=== PATIENT | female | born 1940 | race Caucasian/White ===

== ENCOUNTER 2019-07-24 11:32 | Emergency (ER) | payer OTHER ==
[~2019-07-24] VITALS: Ht 160 cm; Wt 79.4 kg
[2019-07-24] MEDS ORDERED: LOPRESSOR50 PO (11:43)
[2019-07-24] MEDS ORDERED: ZOCOR 20 MG TAB20 M1 PO (11:43)
[2019-07-24] MEDS ORDERED: COZAAR 25 MG TA25 M1 PO (11:43)
[2019-07-24] MEDS ORDERED: PREDNISONE 20 M20 MG PO (12:07)
[2019-07-24 12:19] VITALS: BP 175/84
== END 2019-07-24 12:20 | disposition home or self-care (01) ==
LOC: M.ERS 11:32
DX: T63.461A Toxic effect of venom of wasps, accidental (unintentional), initial encounter (principal); I10 Essential (primary) hypertension; M19.90 Unspecified osteoarthritis, unspecified site; Z91.038 Other insect allergy status; Y92.89 Other specified places as the place of occurrence of the external cause

== ENCOUNTER → 2020-06-17 | Outpatient (CLI) | payer OTHER ==
[~2020-06-17] MED LIST: COZAAR 25 MG TA25 M1 PO; LOPRESSOR50 PO; PREDNISONE 20 M20 MG PO; ZOCOR 20 MG TAB20 M1 PO
== END ==
LOC: M.RAD 13:55
PROVIDERS: ATTEND Internal Medicine
DX: R05 Cough (principal); I77.819 Aortic ectasia, unspecified site; M25.78 Osteophyte, vertebrae